=== PATIENT | male | born 1945 | race Caucasian/White ===

== ENCOUNTER → 2020-10-09 | Outpatient (CLI) | payer OTHER ==
[~2020-10-09] VITALS: Ht 182.9 cm; Wt 79.5 kg
[~2020-10-09] MED LIST: AMLODIPINE BESYL5 MG PO; ASPIRIN81 M2 PO; ATIVAN0.5 MG PO; AZITHROMYCIN 2250 MG PO; BENAZEPRIL HCL20 MG PO; BUSPIRONE HCL10 MG PO; CARDIZEM CD180 MG PO; CHLORTHALIDONE25 MG PO; CITRATE OF MAG296 ML PO; CLOTRIMAZOLE-BE15 GM TOP; CULTURELLE1 EACH PO; ELIQUIS5 MG PO; FLONASE 0.05%50 MCG NASAL; HYDROCODONE-AP1 EAC6 PO; HYDROXYZINE HCL25 M2 PO; LEXAPRO 10 MG T10 M1 PO; PANTOPRAZOLE SO40 M1 PO; PHAZYME250 MG PO; PRADAXA150 MG PO; PREDNISONE 20 M20 MG PO; PROAIR HFA8.5 GM INH; PROCTO PAK RC; PROTONIX40 M4 PO; PROVENTIL HFA6.7 G1 INH; SYMBICORT160 MCG/4. INH; TOPROL XL100 MG PO; XYZAL5 MG PO; ZYRTEC10 MG PO
[2020-10-09 10:04] VITALS: BP 125/65
[2020-10-09 10:21] LABS: HEMATOCRIT 46.3 % (42.0-52.0); HEMOGLOBIN 15.9 gm/dL (14.0-18.0); MCH 34.9 pg (26.0-34.0); MCHC 34.4 g/dL (28.0-37.0); MCV 101.5 fL (80.0-100.0); RBC 4.56 mil/uL (4.50-6.00); WBC 7.4 thou/uL (4.0-11.0)
== END | disposition home or self-care (01) ==
LOC: CATH 07:11
PROVIDERS: ATTEND Nuclear Medicine Nuclear Cardiology
DX: M54.9 Dorsalgia, unspecified (principal); M80.08XA Age-related osteoporosis with current pathological fracture, vertebra(e), initial encounter for fracture; I10 Essential (primary) hypertension; I48.91 Unspecified atrial fibrillation; J44.9 Chronic obstructive pulmonary disease, unspecified; K21.9 Gastro-esophageal reflux disease without esophagitis; F41.9 Anxiety disorder, unspecified; F17.210 Nicotine dependence, cigarettes, uncomplicated; Z98.890 Other specified postprocedural states; Z79.899 Other long term (current) drug therapy; Z79.01 Long term (current) use of anticoagulants; Z88.8 Allergy status to other drugs, medicaments and biological substances

== ENCOUNTER → 2020-11-07 | Outpatient (CLI) | payer OTHER | LOC: SJCVCIMAG 08:37 | PROVIDERS: ATTEND Nuclear Medicine Nuclear Cardiology | DX: I77.4 Celiac artery compression syndrome (principal); K55.1 Chronic vascular disorders of intestine; M80.08XG Age-related osteoporosis with current pathological fracture, vertebra(e), subsequent encounter for fracture with delayed healing; I48.91 Unspecified atrial fibrillation; I10 Essential (primary) hypertension; Z72.0 Tobacco use; Z79.899 Other long term (current) drug therapy ==

== ENCOUNTER → 2021-05-16 | Outpatient (CLI) | payer OTHER | LOC: SJCVC 10:06 | PROVIDERS: ATTEND Internal Medicine Cardiovascular Disease | DX: R94.31 Abnormal electrocardiogram [ECG] [EKG] (principal); I10 Essential (primary) hypertension; I49.49 Other premature depolarization; I48.91 Unspecified atrial fibrillation; R60.9 Edema, unspecified; I42.9 Cardiomyopathy, unspecified; I48.21 Permanent atrial fibrillation; E78.5 Hyperlipidemia, unspecified; I73.9 Peripheral vascular disease, unspecified; G89.29 Other chronic pain; Z79.899 Other long term (current) drug therapy; Z87.891 Personal history of nicotine dependence; Z82.49 Family history of ischemic heart disease and other diseases of the circulatory system ==